=== PATIENT | female | born 1955 | race Caucasian/White ===

== ENCOUNTER → 2016-11-09 16:12 | Outpatient (CLI) | payer BC | END | disposition home or self-care (01) | LOC: D.US 16:00 | DX: M79.662 Pain in left lower leg (principal); R60.0 Localized edema ==

== ENCOUNTER → 2017-02-12 13:16 | Outpatient (CLI) | payer BC ==
[~2017-02-12 13:16] MED LIST: FUROSEMIDE40 MG PO; HYDROCODONE-APA1 TAB PO; K-DUR20 MEQ PO; LOSARTAN POTASS25 MG PO
== END | disposition home or self-care (01) ==
LOC: D.MRI 13:16
DX: S83.231A Complex tear of medial meniscus, current injury, right knee, initial encounter (principal)

== ENCOUNTER 2017-03-07 05:29 | Day surgery (SDC) | payer BC ==
[2017-03-06 16:12] LABS: HEMATOCRIT 43.4 % (36.0-48.0); HEMOGLOBIN 14.4 g/dL (12-16); MCHC 33.2 g/dL (31.0-37.0); MCV 93.3 fL (80.0-100.0); MEAN PLATELET VOLUME 10.4 fL (7.4-10.4); RBC 4.65 10x6/uL (4.00-5.40); RDW 13.4 % (11.5-14.5); WBC 9.5 10x3/uL (4.8-10.8)
[2017-03-06 16:43] LABS: CALC OSMOLALITY 285 mosm/kg (275-300); CALCIUM 8.7 mg/dL (8.5-10.1); CARBON DIOXIDE 26.6 mmol/L (21.0-32.0); CHLORIDE - SERUM 104 mmol/L (98-107); CREATININE - SERUM 0.7 mg/dL (0.6-1.3); GLUCOSE 105 mg/dL (74-106); POTASSIUM - SERUM 3.4 mmol/L (3.5-5.1); SODIUM 143 mmol/L (136-145); UREA NITROGEN 15 mg/dL (7-18); eGFR NON AFRICAN AMERICAN > 90 mL/min (90-120)
[~2017-03-07 05:29] MED LIST changes: -HYDROCODONE-APA1 TAB PO
[2017-03-07 07:43] VITALS: BP 147/85; BMI 43.1
[2017-03-07] MEDS ORDERED: HYDROCODONE-APA1 TAB PO (10:18)
--- NOTE | 2017-03-07 14:31 | NUR ---
1145 IV DC WITH CATHER TIP INTACT
--- NOTE | 2017-03-10 09:32 | OP ---
PATIENT NAME: EMELIA WEATHERS MEDICAL RECORD: [id number] :59 LOCATION:D.OPS ADMISSION DATE: SURGEON: TATYANA TATE MD DATE OF OPERATION: 03/07/2017 PREOPERATIVE DIAGNOSIS: Medial meniscus tear of the left knee. POSTOPERATIVE DIAGNOSES: 1. Medial meniscus tear of the left knee. 2. 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 PROCEDURES: 1. Arthroscopic partial medial meniscectomy. 2. Arthroscopic chondroplasty medial femoral condyle. SURGEON: Tatyana Tate MD ANESTHESIA: General. INTRAOPERATIVE COMPLICATIONS: None. SUMMARY OF PATHOLOGIC FINDINGS: The patient had a very complex tear of the posterior horn of medial meniscus and it had a very small area of approximately 3-1/2 x 3-1/2 mm of loose chondral cartilage. This was taken back using the torpedo resector to a stable smooth cartilage. OPERATIVE SUMMARY IN DETAIL: After obtaining the appropriate preoperative orthopedic surgery consent as well as anesthetic consultation, evaluation and clearance, the patient was brought to the operating room and placed on the operating table in supine position. After general laryngeal mask was administered, tourniquet was placed about the proximal aspect of the left lower extremity. Left lower extremity was then prepped and draped in routine sterile fashion. The leg was elevated and exsanguinated, tourniquet inflated to 350 mmHg. Routine inferolateral portal was established followed by superomedial portal and inferomedial portal. Diagnostic arthroscopy did reveal the above findings. Attention was first turned to the complex medial meniscus tear. A combination of a mechanical meniscotomes as well as an arthroscopic resector were utilized to debride the medial meniscus back to stable elements. At this point, the torpedo tip bur was placed on it. Gentle chondroplasty was done of the small areas as described above. It was smoothened nicely with no further loose chondral elements. Having completed this, the knee was insufflated with 30 cc of 0.25% Marcaine with epinephrine and 80 mg of Depo-Medrol. Arthroscopy portals were closed in routine interrupted fashion using 4-0 Prolene. Sterile dressings were applied. The tourniquet was deflated. The patient was awakened and taken to the recovery room in stable condition. All final needle and sponge counts were correct. TRANSINT:[id number] Voice Confirmation ID: [id number] DOCUMENT ID: [id number] OPERATIVE REPORT [id number] EMELIA WEATHERS MD, TATYANA ELIAS at 0932 CC: [id number] DICTATION DATE: 03/08/17 165 [employer] [employer]ER: 03/08/[address] [place] [address] 03/07/17 [place] [id number] [place] [id number]
== END 2017-03-07 12:00 | disposition home or self-care (01) ==
LOC: D.OPS 05:29 → D.PAN 09:30 → D.OPS 09:30
PROVIDERS: Anesthesiology
DX: S83.232A Complex tear of medial meniscus, current injury, left knee, initial encounter (principal); M94.262 Chondromalacia, left knee; Z01.812 Encounter for preprocedural laboratory examination; X58.XXXA Exposure to other specified factors, initial encounter

== ENCOUNTER → 2018-02-14 16:48 | Outpatient (CLI) | payer MEDICAID ==
[~2018-02-14 16:48] MED LIST changes: +HYDROCODONE-APA1 TAB PO
== END | disposition home or self-care (01) ==
LOC: D.MAMMO 14:45
DX: Z12.31 Encounter for screening mammogram for malignant neoplasm of breast (principal)

== ENCOUNTER → 2020-02-11 20:50 | Outpatient (CLI) | payer MEDICAID | END | disposition home or self-care (01) | LOC: D.MAMMO 10:30 | PROVIDERS: ATTEND Nurse Practitioner Family | DX: Z12.31 Encounter for screening mammogram for malignant neoplasm of breast (principal) ==